=== PATIENT | male | born 1985 ===

== ENCOUNTER → 2018-09-02 | Outpatient (CLI) | payer BC ==
--- NOTE | 2018-09-02 17:44 | Diagnostic Imaging Report ---
INDICATION: Right testicular pain for the last month. FINDINGS: Right testicle measures 4.1 x 2.1 x 3.4 cm and the left testicle measures 3.7 x 2.4 x 4.0 cm. Both testes show homogeneous echotexture. No discrete testicular mass is seen. Both testes show blood flow. Right epididymis does contain an approximately 4 mm x 3 mm cyst. There is also a 3 mm x 4 mm cyst involving the left epididymis. Small bilateral hydroceles are present. IMPRESSION: 1. No evidence of testicular mass or vascular compromise. 2. Small bilateral epididymal cysts. 3. Small bilateral hydroceles. Dictated by: Dictated on workstation # [id number]
== END ==
LOC: RAD 16:39
PROVIDERS: ATTEND Pediatrics
DX: N50.3 Cyst of epididymis (principal); N43.3 Hydrocele, unspecified
CPT/HCPCS: 76870

== ENCOUNTER 2019-07-07 11:18 | Emergency (ER) | payer BC ==
[~2019-07-07] VITALS: Ht 185 cm; Wt 111.0 kg
--- OUTSIDE RECORDS SUMMARY | 2019-07-07 11:38 | XMS REPORT ---
Author Sarath Collins Organization [employer] Address Unknown Phone Unavailable Care Team Providers Care Certified Ophthalmic Surgical Assistant Name Role Phone RAPHAEL MAYS CP Unavailable Allergies No Known Allergies Problems Problem Type Condition Code Onset Dates Condition Statu s Problem Personal history of other allergy, other than to medicinal agents V15.09 Active Problem Acute sinusitis, unspecified 461.9 Active Problem Acute pharyngitis 462 Active Problem Acute bronchitis 466.0 Active Assessment Encounter for PPD test Z11.1 Activ e Medications No Known Medications Procedures Procedure Coding System Code Date TB INTRADERMAL TEST CPT-4 11726 Dec 18, 2014 Results Name Result Date Reference Range Unit Abnormali ty Flag TB INTRADERMAL Summary Purpose [employer] Submission
--- OUTSIDE RECORDS SUMMARY | 2019-07-07 11:38 | XMS REPORT ---
Author Author Sarath Christine Doctor Organization [facility] Address Unknown Phone Unavailable Care Team Providers Care Surveillance Agent Name Role Phone Migration, Doctor Unavailable Unavailable PROBLEMS Type Condition ICD9-CM Code YPG20-IS Code Onset Dates Condition S tatus SNOMED Code Problem Acute pharyngitis 462 Active 36 9987685 Problem Acute sinusitis, unspecified 461.9 A ctive 28335042 Problem Personal history of other allergy, other than to medicinal agents V15.09 Active 655832007 Problem Acute bronchitis 466.0 Active 105 88581 ALLERGIES No Information ENCOUNTERS Encounter Location Date Diagnosis [address] [id number] [id number] May, [facility] [address] [facility] [id number] [address] [place] [address] [phone] Dec, Dental examination Z01.20 [facility] [address] [id number] [place] [address] [id number] July, Contact dermatitis, unspecif ied contact dermatitis type, unspecified trigger L25.9 [facility] [address] [id number] [place] [address] [phone] July, Contact dermatitis, unspecif ied contact dermatitis type, unspecified trigger L25.9 [facility] [address] [facility] [id number] [address] [place] [phone] Dec, Encounter for PPD test Z11.1 [facility] [address] [facility] [id number] [address] [place] [address] [id number] Oct, Dental examination V72.2 [facility] [address] [facility] [id number] [address] [place] [address] [id number] Aug, Dental examination V72.2 [facility] [address] [facility] [id number] [address] [place] [address] [id number] July, Dental examination V72.2 [facility] [address] [id number] [address] [place] [phone] Jun, [facility] [address] [id number] [address] [place] [phone] Jun, [facility] [address] [id number] [address] [place] [phone] July, [facility] [address] [id number] [address] [place] [phone] July, [facility] [address] [id number] [address] [place] [phone] Jun, [facility] [address] [id number] [address] [place] [phone] Dec, [facility] [address] [id number] [address] [place] [phone] Dec, [facility] [address] [id number] [address] [place] [phone] Dec, [facility] [address] [id number] [address] [place] [phone] Dec, IMMUNIZATIONS No Known Immunizations SOCIAL HISTORY Never Assessed REASON FOR VISIT [facility] [place] C[place] VITAL SIGNS MEDICATIONS Unknown Medications RESULTS No Results PROCEDURES No Known procedures INSTRUCTIONS MEDICATIONS ADMINISTERED No Known Medications MEDICAL (GENERAL) HISTORY Type Description Date Medical History seasonal allergies
--- OUTSIDE RECORDS SUMMARY | 2019-07-07 11:38 | XMS REPORT ---
Author Author STEPHRADHASarath Organization [facility] Address Unknown Care Team Providers Care Sand Plant Attendant Name Role Phone PARVEEN ABBASI Unavailable PROBLEMS Type Condition ICD9-CM Code [id number] Code Onset Dates Condition S tatus SNOMED Code Problem Acute sinusitis, unspecified 461.9 A ctive 97956667 Problem Acute pharyngitis 462 Active 36 1512993 Problem Acute bronchitis 466.0 Active 105 32123 Problem Personal history of other allergy, other than to medicinal agents V15.09 Active 028685216 ALLERGIES Substance Reaction Event Type Date Status Bees Unknown Non Drug Allergy Dec, Active ENCOUNTERS Encounter Location Date Diagnosis [address] [id number] [id number] May, [facility] [address] [id number] [address] [place] [address] [phone] Dec, Dental examination Z01.20 [facility] [address] [facility] [id number] [place] [address] [phone] July, Contact dermatitis, unspecif ied contact dermatitis type, unspecified trigger L25.9 [facility] [address] [facility] [id number] [place] [address] [id number] July, Contact dermatitis, unspecif ied contact dermatitis type, unspecified trigger L25.9 [facility] [address] [facility] [id number] [address] [place] [phone] Dec, Encounter for PPD test Z11.1 [facility] [address] [id number] [address] [place] [address] [id number] Oct, Dental examination V72.2 [facility] [address] [id number] [address] [place] [address] [id number] Aug, Dental examination V72.2 [facility] [address] [id number] [address] [place] [address] [id number] Jul, 2014 Dental examination V72.2 [facility] [address] [id number] [address] [place] [phone] 14 Jun, 2014 [facility] [address] [id number] [address] [place] [phone] Jun, [facility] [address] [id number] [address] [place] [phone] July, [facility] [address] [id number] [address] [place] [phone] July, [facility] [address] [id number] [address] [place] [phone] Jun, [facility] [address] [id number] [address] [place] [phone] Dec, [facility] [address] [id number] [address] [place] [phone] Dec, [facility] [address] [id number] [address] [place] [phone] Dec, [facility] [address] [id number] [address] [place] [phone] Dec, IMMUNIZATIONS No Known Immunizations SOCIAL HISTORY Never Assessed REASON FOR VISIT [facility] PLAN OF CARE Activity Details Follow Up prn Reason:build-up tooth # 30 VITAL SIGNS Height 73 in 2017-01-03 Blood pressure systolic 133 mmHg 2017-01-03 Blood pressure diastolic 90 mmHg 2017-01-03 MEDICATIONS Medication Instructions Dosage Frequency Start Date End Date Duration S steve Binghamteporfirio Allergy Active Xyzal Active RESULTS No Results PROCEDURES Procedure Date Ordered Result Body Site LTD ORAL EVALUATION - PROBLEM FOCUS Jan 03, 2017 INTRAORL-PERIAPICAL 1 FILM 57704 Jan 03, 2017 BITEWING - SINGLE FILM Jan 03, 2017 INSTRUCTIONS MEDICATIONS ADMINISTERED No Known Medications MEDICAL (GENERAL) HISTORY Type Description Date Medical History seasonal allergies
--- OUTSIDE RECORDS SUMMARY | 2019-07-07 11:38 | XMS REPORT ---
Author Author Sarath Mchugh Organization [facility] Address [address] [place] [address] Care Team Providers Care Pharmacy Technician Inpatient Name Role Phone CYNDI Mchugh Unavailable PROBLEMS Type Condition ICD9-CM Code [id number] Code Onset Dates Condition S tatus SNOMED Code Problem Acute sinusitis, unspecified 461.9 A ctive 35118549 Problem Acute pharyngitis 462 Active 36 2449488 Problem Acute bronchitis 466.0 Active 105 09980 Problem Personal history of other allergy, other than to medicinal agents V15.09 Active 564738816 ALLERGIES No Information ENCOUNTERS Encounter Location Date Diagnosis [facility] [address] [facility] [id number] [phone] May, [facility] [address] [id number] [address] [place] [address] [phone] Dec, Dental examination Z01.20 [facility] [address] [id number] [place] [address] [phone] July, Contact dermatitis, unspecif ied contact dermatitis type, unspecified trigger L25.9 [facility] [address] [facility] [id number] [place] [address] [phone] July, Contact dermatitis, unspecif ied contact dermatitis type, unspecified trigger L25.9 [facility] [address] [facility] [id number] [address] [place] [phone] Dec, Encounter for PPD test Z11.1 [facility] [address] [id number] [address] [place] [address] [phone] Oct, Dental examination V72.2 [facility] [address] [id number] [address] [place] [address] [id number] Aug, Dental examination V72.2 [facility] [address] [id number] [address] [place] [address] [id number] Jul, 2014 Dental examination V72.2 [facility] [address] [id number] [address] [place] [phone] 14 Jun, 2014 [facility] [address] [id number] [address] [place] [phone] Jun, [facility] [address] [id number] [address] [place] [phone] July, [facility] [address] [id number] [address] [place] [phone] July, [facility] [address] [id number] [address] [place] [phone] Jun, [facility] [address] [id number] [address] [place] [phone] Dec, [facility] [address] [id number] [address] [place] [phone] Dec, [facility] [address] [id number] [address] [place] [phone] Dec, [facility] [address] [id number] [address] [place] [phone] Dec, IMMUNIZATIONS No Known Immunizations SOCIAL HISTORY Never Assessed REASON FOR VISIT Waiting for call back PLAN OF CARE VITAL SIGNS MEDICATIONS Unknown Medications RESULTS No Results PROCEDURES No Known procedures INSTRUCTIONS MEDICATIONS ADMINISTERED No Known Medications MEDICAL (GENERAL) HISTORY Type Description Date Medical History seasonal allergies
--- OUTSIDE RECORDS SUMMARY | 2019-07-07 11:38 | XMS REPORT ---
Author Author Sarath RANGEL [facility] [employer] Address Unknown Phone Unavailable Care Team Providers Care Chemical Test Engineer Name Role Phone CHERYL RANGEL CP Unavailable Allergies No Known Allergies Problems Problem Type Condition ICD-9 Code Onset Dates Condition Statu s Problem Personal history of other allergy, other than to medicinal agents V15.09 Active Problem Acute sinusitis, unspecified 461.9 Active Problem Acute pharyngitis 462 Active Problem Acute bronchitis 466.0 Active Assessment Dental examination V72.2 Active Medications No Known Medications Procedures Procedure Coding System Code Date Billing Notes on claim CPT-4 EC109 July 19 015 Results No Known Results Summary Purpose [employer] Submission
--- OUTSIDE RECORDS SUMMARY | 2019-07-07 11:38 | XMS REPORT ---
Author Author Migration, Sarath Doctor Organization [facility] Address Unknown Phone Unavailable Care Team Providers Care Reinforcing Bar Setter Name Role Phone Migration, Doctor Unavailable Unavailable PROBLEMS Type Condition ICD9-CM Code [id number] Code Onset Dates Condition S tatus SNOMED Code Problem Acute pharyngitis 462 Active 36 1471748 Problem Acute sinusitis, unspecified 461.9 A ctive 02811687 Problem Personal history of other allergy, other than to medicinal agents V15.09 Active 883580062 Problem Acute bronchitis 466.0 Active 105 34101 ALLERGIES Substance Reaction Event Type Date Status Bees Unknown Non Drug Allergy Jun, Active ENCOUNTERS Encounter Location Date Diagnosis [address] [id number] [place] [address] [phone] May, [facility] [address] [facility] [id number] [address] [place] [address] [id number] Dec, Dental examination Z01.20 [facility] [id number] [place] [address] [phone] July, Contact dermatitis, unspecif ied contact dermatitis type, unspecified trigger L25.9 [facility] [address] [id number] [place] [address] [phone] July, Contact dermatitis, unspecif ied contact dermatitis type, unspecified trigger L25.9 [facility] [address] [facility] [id number] [address] [place] [phone] Dec, Encounter for PPD test Z11.1 [facility] [address] [facility] [id number] [address] [place] [address] [phone] Oct, Dental examination V72.2 [facility] [address] [facility] [id number] [address] [place] [address] [phone] Aug, Dental examination V72.2 [facility] [address] [facility] [id number] [address] [place] [address] [id number] July, Dental examination V72.2 [facility] [address] [id number] [address] [place] [phone] Jun, [facility] [address] [id number] [address] [place] [phone] Jun, [facility] [address] [id number] [address] [place] [phone] July, [facility] [address] [id number] [address] [place] [phone] July, [facility] [address] [id number] [address] [place] [phone] Jun, [facility] [address] [id number] [address] [place] [phone] Dec, [facility] [address] [id number] [address] [place] [phone] Dec, [facility] [address] [id number] [address] [place] [phone] Dec, [facility] [address] [id number] [address] [place] [phone] Dec, IMMUNIZATIONS No Known Immunizations SOCIAL HISTORY Never Assessed REASON FOR VISIT [facility] PLAN OF CARE VITAL SIGNS MEDICATIONS Medication Instructions Dosage Frequency Start Date End Date Duration S tatus Flonase 50 mcg/actuation take 1 sprays b y Nasal route 2 times per day in each nostril Jun, Active Augmentin 875-125 mg 1 tablet by Oral route 2 times pe r day for 14 day(s) July, Active RESULTS No Results PROCEDURES No Known procedures INSTRUCTIONS MEDICATIONS ADMINISTERED No Known Medications MEDICAL (GENERAL) HISTORY Type Description Date Medical History seasonal allergies
--- NOTE | 2019-07-07 11:56 | ED Chest Pain ---
General Chief Complaint: Chest Pain Stated Complaint: CP Nursing Triage Note: Pt reports dull chest pain off and on since Saturday (07/02). Pt reports an episode around 0930 or 1000 this morning lasting approx 30 seconds of heart racing. Pt reports similar "anxiety attacks" in the past. Pt states he is not having chest pain at this time. Nursing Sepsis Screen: No Definite Risk History of Present Illness Date Seen by Provider: Jul 07, 2019 Time Seen by Provider: 11:25 Initial Comments 34-year-old male reports chest discomfort present since 07/03/19, intermittently lasting anywhere from 5-20 minutes. He noticed increased symptoms and anxiety over night making it difficult to sleep. He is having minimal discomfort at this time. He has no history of cardiac disease. He is denying any nausea, vomiting, or diaphoresis. No history of diabetes. Mother has history of hypertension. He has not seen his primary care provider or seek other health care since symptoms began. He has a history of GERD in the past, he did try Zantac last night with no resolution in his symptoms. He reports approximately 2-3 panic episodes in the last 2-5 years has never required medical intervention for panic attacks or anxiety. Timing/Duration: 4-5 days Severity/Quality: mild, dull Location: substernal Radiation: no radiation Prior CP/Workup: no prior chest pain, no prior cardiac workup ASA po MANAGER MOBILITY: No NTG SL MANAGER MOBILITY: No Associated Symptoms: denies symptoms Allergies and Home Medications Allergies Coded Allergies: No Known Drug Allergies (Unverified , 07/07/19) Patient Home Medication List Home Medication List Reviewed: Yes Review of Systems Review of Systems Constitutional: no symptoms reported, see HPI EENTM: No Symptoms Reported, See HPI Respiratory: No Symptoms Reported, See HPI; Denies Cough Cardiovascular: See HPI, Chest Pain Gastrointestinal: No Symptoms Reported, See HPI Genitourinary: No Symptoms Reported, See HPI Musculoskeletal: see HPI Psychiatric/Neurological: See HPI, Anxiety All Other Systems Reviewed Negative Unless Noted: Yes Past Biepagv-Ieopcm-Rkzcrd Hx Past Med/Social Hx: Reviewed Nursing Past Med/Soc Hx Patient Social History Alcohol Use: Denies Use Recreational Drug Use: No Smoking Status: Never a Smoker 2nd Hand Smoke Exposure: No Recent Foreign Travel: No Contact w/Someone Who Travel: No Recent Infectious Disease Expo: No Recent Hopitalizations: No Seasonal Allergies Seasonal Allergies: No Past Medical History Surgeries: No Respiratory: No Cardiac: No Neurological: No Genitourinary: No Gastrointestinal: No Musculoskeletal: No Endocrine: No HEENT: No Cancer: No Psychosocial: No Integumentary: No Blood Disorders: No Physical Exam Vital Signs Vital Signs - First Documented Capillary Refill : Less Than 3 Seconds Height, Weight, BMI Height: '" Weight: lbs. oz. kg; 32.00 BMI Method: General Appearance: No Apparent Distress, WD/WN HEENT: PERRL/EOMI, TMs Normal, Normal ENT Inspection, Pharynx Normal Neck: Full Range of Motion, Normal Inspection, Non Tender, Supple Respiratory: Chest Non Tender, Lungs Clear, Normal Breath Sounds Cardiovascular: Regular Rate, Rhythm, No Edema Gastrointestinal: Normal Bowel Sounds, No Organomegaly, No Pulsatile Mass, Non Tender, Soft Extremity: Normal Capillary Refill, Normal Inspection, Normal Range of Motion, Non Tender, No Calf Tenderness, No Pedal Edema Neurologic/Psychiatric: Alert, Oriented x3, No Motor/Sensory Deficits, Normal Mood/Affect Skin: Normal Color, Warm/Dry Progress/Results/Core Measures Results/Orders Lab Results Laboratory Tests Test 07/07/19 12:22 Range/Units White Blood Count 6.6 4.3-11.0 10^3/uL Red Blood Count 5.33 4.35-5.85 10^6/uL Hemoglobin 16.5 13.3-17.7 G/DL Hematocrit 46 40-54 % Mean Corpuscular Volume 87 80-99 FL Mean Corpuscular Hemoglobin 31 25-34 PG Mean Corpuscular Hemoglobin Concent 36 32-36 G/DL Red Cell Distribution Width 12.7 10.0-14.5 % Platelet Count 260 130-400 10^3/uL Mean Platelet Volume 9.7 7.4-10.4 FL Neutrophils (%) (Auto) 75 42-75 % Lymphocytes (%) (Auto) 15 12-44 % Monocytes (%) (Auto) 8 0-12 % Eosinophils (%) (Auto) 1 0-10 % Basophils (%) (Auto) 1 0-10 % Neutrophils # (Auto) 5.0 1.8-7.8 X 10^3 Lymphocytes # (Auto) 1.0 1.0-4.0 X 10^3 Monocytes # (Auto) 0.6 0.0-1.0 X 10^3 Eosinophils # (Auto) 0.1 0.0-0.3 10^3/uL Basophils # (Auto) 0.0 0.0-0.1 10^3/uL Prothrombin Time 13.2 12.2-14.7 SEC INR Comment 1.0 0.8-1.4 Activated Partial Thromboplast Time 29 24-35 SEC Sodium Level 138 135-145 MMOL/L Potassium Level 3.8 3.6-5.0 MMOL/L Chloride Level 103 98-107 MMOL/L Carbon Dioxide Level 25 21-32 MMOL/L Anion Gap 10 5-14 MMOL/L Blood Urea Nitrogen 8 7-18 MG/DL Creatinine 1.06 0.60-1.30 MG/DL Estimat Glomerular Filtration Rate > 60 BUN/Creatinine Ratio 8 Glucose Level 99 70-105 MG/DL Calcium Level 9.2 8.5-10.1 MG/DL Corrected Calcium 8.9 8.5-10.1 MG/DL Magnesium Level 2.1 1.6-2.4 MG/DL Total Bilirubin 0.5 0.1-1.0 MG/DL Aspartate Amino Transf (AST/SGOT) 26 5-34 U/L Alanine Aminotransferase (ALT/SGPT) 43 0-55 U/L Alkaline Phosphatase 92 40-136 U/L Myoglobin 78.5 10.0-92.0 NG/ML Troponin I < 0.028 <0.028 NG/ML Total Protein 7.8 6.4-8.2 GM/DL Albumin 4.4 3.2-4.5 GM/DL My Orders Orders - MIGUEL ÁNGEL REN [employer]PERATOR Cbc With Automated Diff (07/07/19 11:40) Magnesium (07/07/19 11:40) Chest 1 View, Ap/Pa Only (07/07/19 11:40) Ekg Tracing (07/07/19 11:40) Comprehensive Metabolic Panel (07/07/19 11:40) Myoglobin Serum (07/07/19 11:40) Protime With Inr (07/07/19 11:40) Partial Thromboplastin Time (07/07/19 11:40) O2 (07/07/19 11:40) Monitor-Rhythm Ecg Trace Only (07/07/19 11:40) Ed Iv/Invasive Line Start (07/07/19 11:40) Troponin I (07/07/19 11:40) Aspirin Chewable Tablet (Baby Aspirin Ch (07/07/19 12:00) Medications Given in ED Current Medications Medications Dose Ordered Sig/Sobia Route Start Time Stop Time Status Last Admin Dose Admin Aspirin 324 mg ONCE ONCE PO 07/07/19 12:00 07/07/19 12:01 DC 07/07/19 12:16 324 MG Vital Signs/I&O 07/07/19 07/07/19 11:20 11:20 Temp 36.8 Pulse 93 Resp 20 B/P (MAP) 150/100 (117) Pulse Ox 98 O2 Delivery Room Air Room Air Blood Pressure Mean: 117 Progress Progress Note : Time: 11:25 Progress Note Patient seen and evaluated, will obtain labs, EKG and chest x-ray. Aspirin 324 mg orally. 1215 no change in symptoms. Awaiting xray and lab results. 1315 Patient has remained pain free, lab results discussed with the patient. Agreeable to follow up with PCP. Return precautions reviewed. Initial ECG Impression Date: Jul 07, 2019 Initial ECG Impression Time: 11:25 Initial ECG Rate: 89 Initial ECG Rhythm: Normal Sinus Initial ECG Intervals: Normal Initial ECG Intervals ID 167, QRSD 98, QT 360, QTC 439. Mclain P 39, QRS 24, T9 Initial ECG Impression: Normal Initial ECG Comparisson: No Previous ECG Available Diagnostic Imaging Diagonstic Imaging: Xray Plain Films/CT/US/NM/MRI: chest Comments NAME: LINDA BRONW [facility] REC#: [id number] PT STATUS: REG ER : 1985 PHYSICIAN: MIGUEL ÁNGEL REN ADMIT DATE: 07/07/19/ER Draft Date of Exam:07/07/19 CHEST 1 VIEW, AP/PA ONLY INDICATION: Chest pain. TECHNIQUE: Single view chest 12:43 PM. CORRELATION STUDY: None FINDINGS: The heart size, mediastinal configuration and pulmonary vascularity are within normal limits. There is question minimal asymmetric infiltrate in the right perihilar region. The remaining lung lomax otherwise clear. IMPRESSION: 1. Question early infiltrate right perihilar region. Dictated on workstation # [id number] Dict: 07/07/19 1254 Trans: 07/07/19 1254 DO [id number] Interpreted by: DIANA BERNARD DO Electronically signed by: Departure Impression Primary Impression: Chest pain Qualified Codes: R07.9 - Chest pain, unspecified Additional Impressions: Gastroesophageal reflux disease Qualified Codes: K21.9 - Gastro-esophageal reflux disease without esophagitis Hypertension Qualified Codes: I10 - Essential (primary) hypertension Disposition: HOME, SELF-CARE Condition: Improved Departure-Patient Inst. Decision time for Depature: 13:15 Referrals: NO,LOCAL PHYSICIAN (PCP/Family) Primary Care Physician Patient Instructions: Anxiety, Adult (DC), Chest Pain That Is Not Caused by the Heart (DC), High Blood Pressure (DC) Add. Discharge Instructions: Follow-up with Dr. Fine for anxiety and hypertension. Take aspirin 81 mg, one tablet daily. Take Pepcid 10 mg twice daily. Return to the emergency department for new, urgent health care needs. All discharge instructions reviewed with patient and/or family. Voiced understanding. MIGUEL ÁNGEL REN Jul 07, 2019 11:56
[2019-07-07] MEDS ORDERED: ASPIRIN 81 MG CHEW (CHILDREN'S ASA) PO ONE (12:00)
[2019-07-07 12:27] LABS: BASOPHILS % (AUTO) 1 % (0-10); EOSINOPHILS # (AUTO) 0.1 10^3/uL (0.0-0.3); EOSINOPHILS % (AUTO) 1 % (0-10); HEMATOCRIT 46 % (40-54); HEMOGLOBIN 16.5 G/DL (13.3-17.7); LYMPHOCYTES % (AUTO) 15 % (12-44); MEAN CORPUSCULAR HEMOGLOBIN 31 PG (25-34); MEAN CORPUSCULAR HGB CONC 36 G/DL (32-36); MEAN CORPUSCULAR VOLUME 87 FL (80-99); MEAN PLATELET VOLUME 9.7 FL (7.4-10.4); MONOCYTES # (AUTO) 0.6 X 10^3 (0.0-1.0); MONOCYTES % (AUTO) 8 % (0-12); NEUTROPHILS % (AUTO) 75 % (42-75); PLATELET COUNT 260 10^3/uL (130-400); RED CELL DISTRIBUTION WIDTH 12.7 % (10.0-14.5); WHITE BLOOD COUNT 6.6 10^3/uL (4.3-11.0)
[2019-07-07 12:42] LABS: PROTHROMBIN TIME PATIENT 13.2 SEC (12.2-14.7)
[2019-07-07 12:52] LABS: ALANINE AMINOTRANSFERASE 43 U/L (0-55); ALBUMIN 4.4 GM/DL (3.2-4.5); ALKALINE PHOSPHATASE 92 U/L (40-136); BILIRUBIN,TOTAL 0.5 MG/DL (0.1-1.0); BUN/CREATININE RATIO 8; CALCIUM 9.2 MG/DL (8.5-10.1); CARBON DIOXIDE 25 MMOL/L (21-32); CHLORIDE 103 MMOL/L (98-107); CREATININE SERUM 1.06 MG/DL (0.60-1.30); GFR ESTIMATED > 60; GLUCOSE 99 MG/DL (70-105); MAGNESIUM 2.1 MG/DL (1.6-2.4); POTASSIUM 3.8 MMOL/L (3.6-5.0); SODIUM 138 MMOL/L (135-145); TOTAL PROTEIN 7.8 GM/DL (6.4-8.2)
--- NOTE | 2019-07-07 12:55 | Diagnostic Imaging Report ---
INDICATION: Chest pain. TECHNIQUE: Single view chest 12:43 PM. CORRELATION STUDY: None FINDINGS: The heart size, mediastinal configuration and pulmonary vascularity are within normal limits. There is question minimal asymmetric infiltrate in the right perihilar region. The remaining lung lomax otherwise clear. IMPRESSION: 1. Question early infiltrate right perihilar region. Dictated by: Dictated on workstation # [id number]
[2019-07-07 13:44] VITALS: BP 149/98
== END 2019-07-07 13:39 | disposition home or self-care (01) ==
LOC: EDUNIT# 11:18 → ER 11:19
DX: R07.9 Chest pain, unspecified (principal); K21.9 Gastro-esophageal reflux disease without esophagitis; I10 Essential (primary) hypertension; F41.9 Anxiety disorder, unspecified
CPT/HCPCS: 36415; 71045; 80053; 83735; 83874; 84484; 85025; 85610; 85730; 93005; 93041

== ENCOUNTER 2021-02-20 15:02 | Observation (INO) | payer BC ==
[~2021-02-20] VITALS: Ht 185 cm; Wt 113.0 kg
--- NOTE | 2021-02-20 15:17 | ED Neurological Problem ---
General Stated Complaint: R SIDED NUMBNESS/WEAKNESS Source: patient Exam Limitations: no limitations History of Present Illness Date Seen by Provider: Feb 20, 2021 Time Seen by Provider: 15:13 Initial Comments To ER by private vehicle from Dr. Rober Daly's office where he presented to be seen for a cough that is productive of 3 weeks duration. He is absent any body aches fevers chills nausea or headache. He is unvaccinated against Covid. Has not yet been tested for Covid. While at the office appointment at about 220 to 2:30 PM today he had the onset of paresthesias and tingling of the right arm and right leg. Following the onset of paresthesias he lost strength in the right arm and right leg. No history of this he does not smoke. He does have a history of panic attacks and Dr. Daly thought he might be having a panic attack and gave half of the Valium. He was referred to the emergency room for further work-up. His only medication is a daily antihistamine Timing/Duration: 1 week Severity: moderate Allergies and Home Medications Allergies Coded Allergies: No Known Drug Allergies (Unverified , 07/07/19) Patient Home Medication List Home Medication List Reviewed: Yes Review of Systems Review of Systems Constitutional: see HPI Eyes: No Symptoms Reported Ears, Nose, Mouth, Throat: no symptoms reported Respiratory: no symptoms reported Cardiovascular: no symptoms reported Genitourinary: no symptoms reported Musculoskeletal: no symptoms reported Skin: no symptoms reported Psychiatric/Neurological: See HPI Endocrine: No Symptoms Reported Past Gudkvxj-Yxzlsr-Etwhml Hx Seasonal Allergies Seasonal Allergies: No Past Medical History Surgeries: No Respiratory: No Cardiac: No Neurological: No Genitourinary: No Gastrointestinal: No Musculoskeletal: No Endocrine: No HEENT: No Cancer: No Psychosocial: No Integumentary: No Blood Disorders: No Physical Exam Vital Signs Vital Signs - First Documented 02/20/21 15:05 Temp 36.0 Pulse 68 Resp 18 B/P (MAP) 133/94 (107) Pulse Ox 96 Capillary Refill : Height, Weight, BMI Height: '" Weight: lbs. oz. kg; 32.00 BMI Method: General Appearance: WD/WN, no apparent distress, other (Alert and oriented very pleasant demeanor. He does not appear overly anxious. He converses appropriately with clear speech. There is no facial asymmetry. He is hypertensive at 170s over 90s with a normal telemetry strip showing sinus rhythm at 75. He is afebrile. He is very diaphoretic.) Neck: non-tender, full range of motion Respiratory: no respiratory distress, no accessory muscle use Cardiovascular: regular rate, rhythm, no murmur Gastrointestinal: normal bowel sounds, non tender, soft Neurologic/Psychiatric: alert, normal mood/affect, oriented x 3 Crainal Nerves: normal hearing, normal speech, PERRL Coordination/Gait: normal finger to nose Skin: normal color, warm/dry Stroke Onset of Symptoms Date of Onset of Symptoms: Feb 20, 2021 Time of Symptom Onset: 14:20 Onset of Symptoms: Yes Symptoms onset unknown: No NIH Stroke Scale Assessment Select: Initial Level of Consciousness: 0=Alert (0), Level of Consciousness- Questions: 0=Answers both month/age (0), LOC Commands: 0=Performs both tasks (0), Gaze: Normal (0), Visual Steve: 0=No visual loss (0), Facial Movement (Facial Paresis): 0=Normal symmetrical mnt (0), Motor Function-Arms Right: 1=Drift (1), Motor Function-Arms Left: 0=No drift (0), Motor Function-Legs Right: 1=Drift (1), Motor Function-Legs Left: 0=No drift (0), Limb Ataxia: 0=Absent (0), Sensory: 1=Mild to Moderate loss (1), Best Language: 0=No aphasia (0), Dysarthria: 0=Normal (0), Extinction & Inattention: 0=No abnormality (0), Total: 3 Stroke Thrombolytic Exclusion Age 18 or Over: Yes Acute intenal hemorrhage: No History of CVA: No Uncontrolled Coagulation Defec: No Intracranial Hemorrhage: No Severe Hypertension: No GI or Bleed: No Subarachnoid Hemorrhage: No Intracranial Neoplasm/Aneurysm: No Oral Anticoagulants: No Surgery or Trauma: No Puncture of Non-Compressible V: No Recent CPR: No Diabetic Hemorrhagic Retinopat: No Organ Biopsy: No Recent Obstetric Delivery: No Glucose: No Significant Hepatic Dysfunctio: No NIH Stoke Scale >22: No Bacterial Endocarditis: No Pericarditis: No Improving Symptoms: No Platelets: No TPA Contraindication: No IV - TPa Received IV - TPa Procedure Performed?: No Progress/Results/Core Measures Results/Orders Lab Results Laboratory Tests Test 02/20/21 15:10 02/20/21 15:15 Range/Units White Blood Count 12.0 H 4.3-11.0 10^3/uL Red Blood Count 5.45 4.30-5.52 10^6/uL Hemoglobin 17.1 13.3-17.7 g/dL Hematocrit 48 40-54 % Mean Corpuscular Volume 88 80-99 fL Mean Corpuscular Hemoglobin 31 25-34 pg Mean Corpuscular Hemoglobin Concent 36 32-36 g/dL Red Cell Distribution Width 12.4 10.0-14.5 % Platelet Count 362 130-400 10^3/uL Mean Platelet Volume 9.2 9.0-12.2 fL Immature Granulocyte % (Auto) 0 % Neutrophils (%) (Auto) 46 42-75 % Lymphocytes (%) (Auto) 41 12-44 % Monocytes (%) (Auto) 7 0-12 % Eosinophils (%) (Auto) 4 0-10 % Basophils (%) (Auto) 1 0-10 % Neutrophils # (Auto) 5.5 1.8-7.8 X 10^3 Lymphocytes # (Auto) 4.9 H 1.0-4.0 X 10^3 Monocytes # (Auto) 0.8 0.0-1.0 X 10^3 Eosinophils # (Auto) 0.5 H 0.0-0.3 10^3/uL Basophils # (Auto) 0.1 0.0-0.1 10^3/uL Immature Granulocyte # (Auto) 0.0 0.0-0.1 10^3/uL Prothrombin Time 12.6 12.2-14.7 SEC INR Comment 0.9 0.8-1.4 Activated Partial Thromboplast Time 27 24-35 SEC D-Dimer < 0.28 0.00-0.49 UG/ML Sodium Level 139 135-145 MMOL/L Potassium Level 3.2 L 3.6-5.0 MMOL/L Chloride Level 104 98-107 MMOL/L Carbon Dioxide Level 22 21-32 MMOL/L Anion Gap 13 5-14 MMOL/L Blood Urea Nitrogen 7 7-18 MG/DL Creatinine 1.04 0.60-1.30 MG/DL Estimat Glomerular Filtration Rate 81 BUN/Creatinine Ratio 7 Glucose Level 134 H 70-105 MG/DL Calcium Level 8.9 8.5-10.1 MG/DL Corrected Calcium 8.5 8.5-10.1 MG/DL Total Bilirubin 0.7 0.1-1.0 MG/DL Aspartate Amino Transf (AST/SGOT) 21 5-34 U/L Alanine Aminotransferase (ALT/SGPT) 35 0-55 U/L Alkaline Phosphatase 91 40-136 U/L Troponin I < 0.028 <0.028 NG/ML Total Protein 8.1 6.4-8.2 GM/DL Albumin 4.5 3.2-4.5 GM/DL SARS-CoV-2 RNA (RT-PCR) Not Detected Not Detecte My Orders Orders - JOEY ANDREWS APRN Cbc With Automated Diff (02/20/21 15:11) Protime With Inr (02/20/21 15:11) Partial Thromboplastin Time (02/20/21 15:11) Comprehensive Metabolic Panel (02/20/21 15:11) Fibrin Degradation Products (02/20/21 15:) Troponin I Jeniffer (02/20/21 15:11) Ua Culture If Indicated (02/20/21 15:11) Chest 1 View, Ap/Pa Only (02/20/21 15:11) Ekg Tracing (02/20/21 15:11) Accucheck Stat ONCE (02/20/21 15:11) Ed Iv/Invasive Line Start (02/20/21 15:11) Ed Iv/Invasive Line Start (02/20/21 15:11) Vital Signs Stroke Patient Q15M (02/20/21 15:11) Ct Head Wo-R/O Stroke (02/20/21 15:11) O2 (02/20/21 15:11) Intake & Output 06,14,22 (02/20/21 15:11) Monitor-Rhythm Ecg Trace Only (02/20/21 15:11) Dysphagia Screening Tool (02/20/21 15:11) Post Thrombolytic Adminstratio (02/20/21 15:11) Lipid Panel (02/21/21 06:00) Ct Angio Head/Neck (02/20/21 15:11) Covid 19 Inhouse Test (02/20/21 15:11) Iohexol Injection (Omnipaque 350 Mg/Ml 1 (02/20/21 15:30) Received Contrast (Hold Metformin- Contr (02/20/21 15:30) Ns (Ivpb) (Sodium Chloride 0.9% Ivpb Bag (02/20/21 15:30) Sodium Chloride Flush (Catheter Flush Sy (02/20/21 15:30) Lactated Ringers (Lr 1000 Ml Iv Solution (02/20/21 16:00) Aspirin Enteric Coated Tablet (Ecotrin T (02/20/21 16:45) Medications Given in ED Current Medications Medications Dose Ordered Sig/Sobia Route Start Time Stop Time Status Last Admin Dose Admin Iohexol 75 ml ONCE ONCE IV 02/20/21 15:30 02/20/21 15:38 DC 02/20/21 15:45 75 ML Sodium Chloride 100 ml ONCE ONCE IV 02/20/21 15:30 02/20/21 15:38 DC 02/20/21 15:46 80 ML Vital Signs/I&O 02/20/21 15:05 Temp 36.0 Pulse 68 Resp 18 B/P (MAP) 133/94 (107) Pulse Ox 96 Departure Communication (Admissions) NAME: LINDA BROWN [facility] REC#: [id number] PT STATUS: REG ER : 1985 PHYSICIAN: JOEY ANDREWS APRN ADMIT DATE: 02/20/21/ER Draft Date of Exam:02/20/21 CT ANGIO HEAD/NECK PROCEDURE: CT angiography of the head and CT angiography of the neck with and without contrast. TECHNIQUE: Contiguous noncontrast images were obtained from the skull base through the vertex. After intravenous contrast administration, helical CT angiography of the neck was performed. Source data was reformatted into 3D MIP projections. Delayed postcontrast acquisition was also obtained. Auto Exposure Controls were utilized during the CT exam to meet ALARA standards for radiation dose reduction. INDICATION: 35-year-old male presents with stroke-like symptoms, left-sided weakness, and right-sided numbness. COMPARISONS: CT head 02/20/2021. FINDINGS: There is normal arch origin of the great vessels. Both common carotid arteries are widely patent. Carotid bifurcations, cervical, high cervical, petrous, and cavernous segments of both ICA are normal. A1 and A2 segments of both MIRACLE, M1, M2, and M3 trifurcation vessels of both MCA are unremarkable. There is no large vessel or medium vessel occlusion seen in the anterior circulation. The left vertebral artery is dominant. Both vertebral arteries are patent to the skull base. There is PICA termination of the right vertebral artery. The V3 segment of the right vertebral artery, however, is atretic with poor contrast opacification. This may be due to technique; however, a short segment of atherosclerosis versus dissection in a very small [place] caliber vessel is not entirely excluded. It should be noted, however, that the right PICA does show contrast opacification. The dominant left vertebral artery is widely patent to the skull base. The V3 and V4 segments are widely patent. The left PICA, basilar artery, AICA, SCA, and water resource engineering specialist otherwise show normal contrast opacification. Lung apices are clear. Superior mediastinum is unremarkable. Parapharyngeal and paraspinous soft tissues are also grossly normal. Bone windows show normal alignment of the cervical vertebral bodies. IMPRESSION: 1. The nondominant right vertebral artery shows contrast opacification up to the skull base transverse segment. The V3 segment, however, shows poor contrast opacification. This may be due to technique; however, underlying short segment atherosclerosis versus focal dissection in this small-caliber vessel is not excluded. It should, however, be noted that the right PICA appears to show contrast opacification which may be due to collateral flow. 2. In the anterior circulation, no large vessel or medium vessel occlusion seen. 3. The left dominant vertebral artery is widely patent to the skull base, and the posterior secretion is otherwise widely patent with no large vessel or medium vessel occlusion seen. Additional nonemergent findings as described above. Dictated on workstation # [id number] Dict: 02/20/21 1555 Trans: 02/20/21 1610 [id number] Interpreted by: PAMELA MORELOS MD Electronically signed by: Family Conversation NAME: LINDA BROWN Jazzy [facility] REC#: [id number] PT STATUS: REG ER : 1985 PHYSICIAN: JOEY ANDREWS APRN ADMIT DATE: 02/20/21/ER Draft Date of Exam:02/20/21 CT HEAD WO-R/O STROKE PROCEDURE: CT head wo r/o stroke. TECHNIQUE: Multiple contiguous axial images were obtained through the brain without the use of intravenous contrast. Auto Exposure Controls were utilized during the CT exam to meet ALARA standards for radiation dose reduction. INDICATION: 35-year-old male with stroke-like symptoms with left-sided weakness and right-sided numbness. COMPARISONS: None FINDINGS: The midline structures are not displaced. The lateral, 3rd and 4th ventricles are normal in size, shape and anatomic position. There is no mass, mass effect, hydrocephalus or hemorrhage. Slight increased attenuation of the vascular structures is felt to be due to hemoconcentration rather than thromboemboli. There are no abnormal extra-axial fluid collections or hemorrhage. Basilar cisterns appear normal. Sinuses show acute on chronic pansinusitis most severe in the ethmoid air cells and sphenoid sinuses. Orbits and mastoid air cells are grossly normal. Bone windows showed no calvarial changes. IMPRESSION: 1. Essentially unremarkable nonenhanced CT brain. 2. Acute on chronic pansinusitis most severe in the posterior ethmoid air cells and sphenoid sinuses. 3. Additional nonemergent findings, as described above. Dictated on workstation # [id number] Dict: 02/20/21 1553 Trans: 02/20/21 1559 [facility] [id number] Interpreted by: PAMELA MORELOS MD Electronically signed by: EKG shows sinus rhythm rate of 66 normal intervals no ectopy no ST segment change 1630-I spoke with Dr. Wells from the stroke neurology service at the [facility] about the findings. CT angio shows poor opacification in the V3 segment of one of the vertebral arteries. This could result from a atherosclerosis, result of contrast timing, result of focal dissection. However these would not contribute to his anterior circulation symptoms. Dr. Wells would recommend admission for observation and typical stroke work-up including MRI. Symptoms have been waxing and waning during his ER stay. He associates t he resolution of symptoms and the recurrence of symptoms with coughing. He states that when he coughs as he did when he got back from CT he had a resolution of the tingling in the right arm and right leg. He has been having some neck pain and seeing a chiropractor for that. He has never had an MRI of the cervical spine. In addition to the brain MRI it would be beneficial to get a cervical spine MRI as well. 1645-with Dr. Yi, will admit and observe. Order for MRI brain with and without tomorrow and MRI C-spine tomorrow Impression Primary Impression: Paresthesia of right arm and leg Additional Impression: Cough Disposition: ADMITTED INPATIENT Condition: Stable Admissions Decision to Admit Reason: Admit from ER (General) Decision to Admit/Date: Feb 20, 2021 Time/Decision to Admit Time: 16:46 Departure-Patient Inst. Referrals: ROBER DALY MD (PCP/Family) Primary Care Physician Copy Copies To 1: ROBER DALY MD, PETER J APRN Feb 20, 2021 15:17
[2021-02-20 15:24] LABS: BASOPHILS # (AUTO) 0.1 10^3/uL (0.0-0.1); BASOPHILS % (AUTO) 1 % (0-10); EOSINOPHILS # (AUTO) 0.5 10^3/uL (0.0-0.3); EOSINOPHILS % (AUTO) 4 % (0-10); HEMATOCRIT 48 % (40-54); HEMOGLOBIN 17.1 g/dL (13.3-17.7); LYMPHOCYTES # (AUTO) 4.9 X 10^3 (1.0-4.0); LYMPHOCYTES % (AUTO) 41 % (12-44); MEAN CORPUSCULAR HEMOGLOBIN 31 pg (25-34); MEAN CORPUSCULAR HGB CONC 36 g/dL (32-36); MEAN CORPUSCULAR VOLUME 88 fL (80-99); MEAN PLATELET VOLUME 9.2 fL (9.0-12.2); MONOCYTES # (AUTO) 0.8 X 10^3 (0.0-1.0); MONOCYTES % (AUTO) 7 % (0-12); NEUTROPHILS # (AUTO) 5.5 X 10^3 (1.8-7.8); NEUTROPHILS % (AUTO) 46 % (42-75); PLATELET COUNT 362 10^3/uL (130-400)
[2021-02-20] MEDS ORDERED: HOLD METFORMIN - RECEIVED CONTRAST 20 ML VIAL IV SCH (15:30)
[2021-02-20] MEDS ORDERED: IOHEXOL 350 MG/ML 100 ML (OMNIPAQUE 350) VIAL IV ONE (15:30)
[2021-02-20] MEDS ORDERED: CATHETER FLUSH 10 ML SYR IV PRN (15:30)
[2021-02-20] MEDS ORDERED: NS 100 ML (IVPB) BAG IV ONE (15:30)
[2021-02-20 15:34] LABS: ALBUMIN 4.5 GM/DL (3.2-4.5); CHLORIDE 104 MMOL/L (98-107); POTASSIUM 3.2 MMOL/L (3.6-5.0); SODIUM 139 MMOL/L (135-145)
[2021-02-20 15:36] LABS: CALCIUM 8.9 MG/DL (8.5-10.1)
[2021-02-20 15:37] LABS: GLUCOSE 134 MG/DL (70-105); TOTAL PROTEIN 8.1 GM/DL (6.4-8.2)
[2021-02-20 15:38] LABS: CARBON DIOXIDE 22 MMOL/L (21-32)
[2021-02-20 15:39] LABS: BILIRUBIN,TOTAL 0.7 MG/DL (0.1-1.0)
[2021-02-20 15:40] LABS: ALKALINE PHOSPHATASE 91 U/L (40-136); CREATININE SERUM 1.04 MG/DL (0.60-1.30); GFR ESTIMATED 81
[2021-02-20 15:42] LABS: BUN/CREATININE RATIO 7
[2021-02-20 15:43] LABS: ALANINE AMINOTRANSFERASE 35 U/L (0-55)
--- NOTE | 2021-02-20 15:55 | Diagnostic Imaging Report ---
Indication: Altered mental status Portable chest 3:45 PM Heart size and pulmonary vascularity are normal. Lungs are clear. There are no effusions or pneumothoraces. IMPRESSION: Negative chest Dictated by: Dictated on workstation # [id number]
--- NOTE | 2021-02-20 15:59 | Diagnostic Imaging Report ---
PROCEDURE: CT head wo r/o stroke. TECHNIQUE: Multiple contiguous axial images were obtained through the brain without the use of intravenous contrast. Auto Exposure Controls were utilized during the CT exam to meet ALARA standards for radiation dose reduction. INDICATION: 35-year-old male with stroke-like symptoms with left-sided weakness and right-sided numbness. COMPARISONS: None FINDINGS: The midline structures are not displaced. The lateral, 3rd and 4th ventricles are normal in size, shape and anatomic position. There is no mass, mass effect, hydrocephalus or hemorrhage. Slight increased attenuation of the vascular structures is felt to be due to hemoconcentration rather than thromboemboli. There are no abnormal extra-axial fluid collections or hemorrhage. Basilar cisterns appear normal. Sinuses show acute on chronic pansinusitis most severe in the ethmoid air cells and sphenoid sinuses. Orbits and mastoid air cells are grossly normal. Bone windows showed no calvarial changes. IMPRESSION: 1. Essentially unremarkable nonenhanced CT brain. 2. Acute on chronic pansinusitis most severe in the posterior ethmoid air cells and sphenoid sinuses. 3. Additional nonemergent findings, as described above. Dictated by: Dictated on workstation # [id number]
[2021-02-20] MEDS ORDERED: LACTATED RINGERS 1,000 ML IV SCH (16:00)
--- NOTE | 2021-02-20 16:10 | Diagnostic Imaging Report ---
PROCEDURE: CT angiography of the head and CT angiography of the neck with and without contrast. TECHNIQUE: Contiguous noncontrast images were obtained from the skull base through the vertex. After intravenous contrast administration, helical CT angiography of the neck was performed. Source data was reformatted into 3D MIP projections. Delayed postcontrast acquisition was also obtained. Auto Exposure Controls were utilized during the CT exam to meet ALARA standards for radiation dose reduction. INDICATION: 35-year-old male presents with stroke-like symptoms, left-sided weakness, and right-sided numbness. COMPARISONS: CT head 02/20/2021. FINDINGS: There is normal arch origin of the great vessels. Both common carotid arteries are widely patent. Carotid bifurcations, cervical, high cervical, petrous, and cavernous segments of both ICA are normal. A1 and A2 segments of both MIRACLE, M1, M2, and M3 trifurcation vessels of both MCA are unremarkable. There is no large vessel or medium vessel occlusion seen in the anterior circulation. The left vertebral artery is dominant. Both vertebral arteries are patent to the skull base. There is PICA termination of the right vertebral artery. The V3 segment of the right vertebral artery, however, is atretic with poor contrast opacification. This may be due to technique; however, a short segment of atherosclerosis versus dissection in a very small iroquois caliber vessel is not entirely excluded. It should be noted, however, that the right PICA does show contrast opacification. The dominant left vertebral artery is widely patent to the skull base. The V3 and V4 segments are widely patent. The left PICA, basilar artery, AICA, SCA, and boiler operator helper otherwise show normal contrast opacification. Lung apices are clear. Superior mediastinum is unremarkable. Parapharyngeal and paraspinous soft tissues are also grossly normal. Bone windows show normal alignment of the cervical vertebral bodies. IMPRESSION: 1. The nondominant right vertebral artery shows contrast opacification up to the skull base transverse segment. The V3 segment, however, shows poor contrast opacification. This may be due to technique; however, underlying short segment atherosclerosis versus focal dissection in this small-caliber vessel is not excluded. It should, however, be noted that the right PICA appears to show contrast opacification which may be due to collateral flow. 2. In the anterior circulation, no large vessel or medium vessel occlusion seen. 3. The left dominant vertebral artery is widely patent to the skull base, and the posterior secretion is otherwise widely patent with no large vessel or medium vessel occlusion seen. Additional nonemergent findings as described above. Dictated by: Dictated on workstation # [id number]
[2021-02-20 16:36] LABS: INR 0.9 (0.8-1.4); PARTIAL THROMBOPLASTIN TIME 27 SEC (24-35); PROTHROMBIN TIME PATIENT 12.6 SEC (12.2-14.7)
[2021-02-20 16:38] LABS: FIBRIN DEGRADATION PRODUCTS < 0.28 UG/ML (0.00-0.49)
[2021-02-20] MEDS ORDERED: ASPIRIN E.C. 81 MG (ECOTRIN) TAB PO ONE (16:45)
[2021-02-20] MEDS ORDERED: ASPIRIN 81 MG CHEW (CHILDREN'S ASA) ONE (16:55)
[2021-02-20 17:40] VITALS: BP 162/106
[2021-02-20] MEDS ORDERED: guaiFENesin/CODEINE (ROBITUSSIN AC) 10ML UDC PO PRN ×2 (18:00→20:45)
[2021-02-20] MEDS ORDERED: ALPRAZolam 0.25 MG (XANAX) TAB PO PRN (18:00)
[2021-02-20] MEDS ORDERED: ONDANSETRON 4 MG/2 ML (SDV) Z0FRAN IVP PRN (18:00)
[2021-02-20] MEDS ORDERED: diphenhydrAMINE 25 MG TAB (BENADRYL) PO PRN (18:00)
[2021-02-20] MEDS ORDERED: ENOXAPARIN 40 MG/0.4 ML (LOVENOX) SYR SC SCH (18:00)
[2021-02-20] MEDS ORDERED: SENNA W/DOCUSATE (SENOKOT S) TABLET PO PRN (18:00)
[2021-02-20] MEDS ORDERED: ACETAMINOPHEN 325 MG TABLET PO PRN (18:00)
[2021-02-20] MEDS ORDERED: HYDROcodone/APAP 5 MG/325 MG (LORTAB) TAB PO PRN (18:00)
[2021-02-20] MEDS ORDERED: MELATONIN 3 MG TABLET PO PRN (18:00)
[2021-02-20] MEDS ORDERED: NS IV 1000 ML 1,000 ML IV SCH (18:00)
[2021-02-20] MEDS ORDERED: CALCIUM CARBONATE 500 MG (TUMS) TAB.CHEW PO PRN (18:00)
[2021-02-20] MEDS ORDERED: LOPERAMIDE 2 MG (IMODIUM) TABLET PO PRN (18:00)
[2021-02-20] MEDS ORDERED: DOCUSATE SODIUM 100 MG (COLACE) CAP PO PRN (18:00)
[2021-02-20 18:31] VITALS: BP 133/94
[2021-02-20] MEDS ORDERED: RT-ALBUTEROL SULF 2.5 MG/3 ML PRE-MIX VIAL INH PRN (18:45)
[2021-02-20 20:00] VITALS: BP 154/94
[2021-02-20] MEDS: polyethylene glycoL POWDER 17 GM (MIRALAX) PACK PO SCH (20:31)
--- NOTE | 2021-02-20 20:43 | History & Physical-Hospitalist ---
History of Present Illness HPI/Chief Complaint Chief complaint: Right-sided paresthesia History of present illness: This is a 35-year-old white male who was seen in Dr. Rober Núñez's office today due to cough and upper respiratory illness. He reports that he has been coughing for 3 weeks and multiple Covid test were negative. He reports that after a cough he felt something in his neck and began experiencing right-sided weakness with NIH score of 3. Neurology stroke service notified at and they recommended full stroke protocol and observation. He has been seeing a chiropractor Dr. Robert Aguilar. He reports continued neck pain. Lungs are wheezing on exam so well initiate aggressive treatment for that issue along with stroke work-up along with cervical spine impingement. Source: patient, RN/MD Exam Limitations: no limitations Date Seen 02/20/21 Time Seen by a Provider: 19:00 Attending Physician Ximena Yi Chad C MD Referring Physician Date of Admission Feb 20, 2021 at 16:51 Home Medications & Allergies Home Medications Reviewed patient Home Medication Reconciliation performed by pharmacy medication reconciliations small engine technician and/or nursing. Patients Allergies have been reviewed. Allergies Allergies Coded Allergies No Known Drug Allergies (Unverified07/07/19) Past Mioyvcl-Uilqah-Wezvsp Hx Patient Social History Marrital Status: single Employed/Student: employed Tobacco Use?: No Smoking Status: Never a Smoker Substance use?: No Alcohol Use?: No Pt feels they are or have been: No Seasonal Allergies Seasonal Allergies: No Current Status Advance Directives: No Communicates: Verbally Primary Language: [place] Preferred Spoken Language: [place] Is interpretation needed?: No Past Medical History Blood Disorders: No Review of Systems Constitutional: see HPI EENTM: no symptoms reported Respiratory: cough, wheezing Cardiovascular: no symptoms reported Gastrointestinal: no symptoms reported Genitourinary: no symptoms reported Musculoskeletal: muscle twitching, muscle weakness, neck pain Skin: no symptoms reported Psychiatric/Neurological: Anxiety, Weakness All Other Systems Reviewed Negative Unless Noted: Yes Physical Exam Physical Exam Vital Signs Vital Signs - First Documented 02/20/21 02/20/21 02/20/21 15:05 17:40 18:31 Temp 36.0 Pulse 68 Resp 18 B/P (MAP) 133/94 (107) Pulse Ox 96 O2 Delivery Room Air FiO2 21 Capillary Refill : Less Than 3 Seconds Height, Weight, BMI Height: '" Weight: lbs. oz. kg; 33.01 BMI Method: General Appearance: No Apparent Distress, WD/WN Eyes: Right Eye Normal Inspection, Right Eye PERRL HEENT: PERRL/EOMI, Normal ENT Inspection, Pharynx Normal, Moist Mucous Membranes Neck: Full Range of Motion, Normal Inspection, Non Tender Respiratory: Chest Non Tender, Lungs Clear, Normal Breath Sounds, No Accessory Muscle Use, No Respiratory Distress Cardiovascular: Regular Rate, Rhythm, No Edema, No Gallop, No JVD, No Murmur, Normal Peripheral Pulses Gastrointestinal: Normal Bowel Sounds, No Organomegaly, No Pulsatile Mass, Non Tender, Soft Back: Normal Inspection, No CVA Tenderness, No Vertebral Tenderness Extremity: Normal Capillary Refill, Normal Inspection, Normal Range of Motion, Non Tender, No Calf Tenderness, No Pedal Edema Neurologic/Psychiatric: Alert, Oriented x3, No Motor/Sensory Deficits, Normal Mood/Affect Skin: Normal Color, Warm/Dry Lymphatic: No Adenopathy Results Results/Procedures Labs Laboratory Tests 02/20/21 15:10 02/21/21 05:10 Patient resulted labs reviewed. Assessment/Plan Admission Diagnosis Assessment: Right-sided paresthesia suspicious for stroke versus cervical spine impingement Cough for 3 weeks Covid negative but wheezing on lung exam Plan: Stroke protocol MRI of cervical spine and brain Wheezing management Admission Status: Observation Diagnosis/Problems Diagnosis/Problems (1) Paresthesia of right arm and leg Status: Acute (2) Cough Status: Acute Clinical Quality Measures Stroke: Date of last known well: Feb 20, 2021 Time of last known well: 14:20 Symptoms onset unknown: No XIMENA YI DO Feb 20, 2021 20:43
[2021-02-20] MEDS ORDERED: LORATADINE (CLARITIN) 10 MG TAB PO ONE (20:45)
[2021-02-20] MEDS ORDERED: ADVAIR HFA 115/21 MCG INHALER 8 GM IH SCH (21:00)
[2021-02-20] MEDS: RT-ALBUTEROL SULF 2.5 MG/3 ML PRE-MIX VIAL INH SCH (21:23)
[2021-02-20] MEDS ORDERED: MONTELUKAST 10 MG (SINGULAIR) TAB PO SCH (21:30)
[2021-02-20] MEDS ORDERED: AZITHROMYCIN 250 MG TAB (ZITHROMAX) PO ONE (21:30)
[2021-02-20] MEDS: BENZONATATE 100 MG (TESSALON) CAPSULE PO SCH (21:50)
[2021-02-21] VITALS: BP 132/82
[2021-02-21 04:00] VITALS: BP 134/89
[2021-02-21 05:21] LABS: BASOPHILS # (AUTO) 0.1 10^3/uL (0.0-0.1); BASOPHILS % (AUTO) 1 % (0-10); EOSINOPHILS # (AUTO) 0.3 10^3/uL (0.0-0.3); EOSINOPHILS % (AUTO) 3 % (0-10); HEMATOCRIT 44 % (40-54); HEMOGLOBIN 15.3 g/dL (13.3-17.7); LYMPHOCYTES # (AUTO) 2.4 10^3/uL (1.0-4.0); LYMPHOCYTES % (AUTO) 30 % (12-44); MEAN CORPUSCULAR HEMOGLOBIN 31 pg (25-34); MEAN CORPUSCULAR HGB CONC 35 g/dL (32-36); MEAN CORPUSCULAR VOLUME 90 fL (80-99); MEAN PLATELET VOLUME 9.5 fL (9.0-12.2); MONOCYTES # (AUTO) 0.6 10^3/uL (0.0-1.0); MONOCYTES % (AUTO) 8 % (0-12); NEUTROPHILS # (AUTO) 4.7 10^3/uL (1.8-7.8); NEUTROPHILS % (AUTO) 58 % (42-75); PLATELET COUNT 270 10^3/uL (130-400); WHITE BLOOD COUNT 8.2 10^3/uL (4.3-11.0)
[2021-02-21 05:39] LABS: ALBUMIN 3.9 GM/DL (3.2-4.5); POTASSIUM 3.7 MMOL/L (3.6-5.0)
[2021-02-21 05:40] LABS: CALCIUM 8.7 MG/DL (8.5-10.1)
[2021-02-21 05:41] LABS: TOTAL PROTEIN 7.1 GM/DL (6.4-8.2)
[2021-02-21 05:43] LABS: BILIRUBIN,TOTAL 0.7 MG/DL (0.1-1.0)
[2021-02-21 05:45] LABS: CREATININE SERUM 1.04 MG/DL (0.60-1.30)
[2021-02-21] MEDS ORDERED: methylPREDNISolone 40 MG/ML (Solu-MEDROL) VIAL IV ONE (06:00)
[2021-02-21 08:00] VITALS: BP 151/105
[2021-02-21] MEDS ORDERED: RT--FLUTICASONE/SALMETEROL 113-14 (AIRDUO RespiCLICK) IH SCH (08:00)
[2021-02-21] MEDS: BENZONATATE 100 MG (TESSALON) CAPSULE PO SCH (08:41)
[2021-02-21] MEDS: polyethylene glycoL POWDER 17 GM (MIRALAX) PACK PO SCH (08:41)
[2021-02-21] MEDS ORDERED: LORATADINE (CLARITIN) 10 MG TAB PO SCH (09:00)
[2021-02-21] MEDS ORDERED: ASPIRIN E.C. 81 MG (ECOTRIN) TAB PO SCH (09:00)
--- NOTE | 2021-02-21 09:00 | Diagnostic Imaging Report ---
CLINICAL INDICATION: Patient with paresthesia of the right side. COMPARISON: None. EXAM: Real-time carotid Doppler duplex imaging was performed bilaterally. Peak systolic velocity, ICA/CCA peak systolic ratio, spectral analysis, and vascular morphology were studied. FINDINGS: ARTERY VELOCITY Right Left CCA 1.08 m/s 1.26 m/s ICA 0.42 m/s 0.54 m/s ECA 0.63 m/s 0.89 m/s ICA/CCA 0.4 0.4 VERT.ART Antegrade Antegrade There is minimal atherosclerotic disease involving the bilateral carotid arteries. IMPRESSION: There is no grayscale or Doppler evidence of significant vascular stenosis. Dictated by: Dictated on workstation # [id number]
[2021-02-21] MEDS ORDERED: LEVO5TAB28 PO (09:05)
[2021-02-21] MEDS ORDERED: FLUT9.9S NSEACH (09:07)
[2021-02-21] MEDS ORDERED: amLODIPine 5 MG (NORVASC) TAB PO ONE (09:30)
--- NOTE | 2021-02-21 09:31 | Physical Therapy Evaluation ---
PT Evaluation-General Medical Diagnosis Admission Date Feb 20, 2021 at 16:51 Medical Diagnosis: right sided paresthesia Onset Date: Feb 20, 2021 Therapy Diagnosis Therapy Diagnosis: independent with mobility Precautions Precautions/Isolations: Standard Precautions Referral Physician: Ximena Yi DO Reason for Referral: Evaluation/Treatment Prior Prior Level of Function SCALE: Activities may be completed with or without assistive devices. 8-Rvzhthmfgq-hgcrxiq completes the activity by him/herself with no assistance from a helper. 5-Set-up or Clean-up Assistance-helper sets up or cleans up; patient completes activity. Reading assists only prior to or following the activity. 4-Supervision or Touching Assistance-helper provides verbal cues and/or touchi ng/steadying and/or contact guard assistance as patient completes activity. Assistance may be provided throughout the activity or intermittently. 3-Partial/Moderate Assistance-helper does LESS THAN HALF the effort. Reading lifts, holds or supports trunk or limbs, but provides less than half the effort. 2-Substantial/Maximal Assistance-helper does MORE THAN HALF the effort. Reading lifts or holds trunk or limbs and provides more than half the effort. 9-Zkpkdadaq-onvtki does ALL the effort. Patient does none of the effort to complete the activity. Or, the assistance of 2 or more helpers is required for the patient to complete the activity. If activity was not attempted, code reason: 7-Patient Refused. 9-Not Applicable-not attempted and the patient did not perform the activity before the current illness, exacerbation or injury. 10-Not Attempted due to Environmental Limitations-(lack of equipment, weather restraints, etc.). 88-Not Attempted due to Medical Conditions or Safety Concerns. Bed Mobility: 6 Transfers (B,C,W/C): 6 Gait: 6 Stairs: 6 Indoor Mobility (Ambulation): Independent Stairs: Independent PT Evaluation-Current Subjective Patient in bed pre tx, has minor unrated pain in neck, agrees to PT. Patient states his symptoms on his right side have resolved and has been ambulating in his room on his own. Pt/Family Goals "to go home" Objective Patient Orientation: Person, Place, Situation, Normal For Age ROM/Strength ROM Lower Extremities WNL Strength Lower Extremities BLE grossly 5/5 Sensory Vision: Functional Hearing: Functional Sensation Right Lower Extremit: Intact Sensation Left Lower Extremity: Intact Transfers Roll Left to Right (QC): 6 Sit to Lying (QC): 6 Lying to Sitting/Side of Bed(Q: 6 Sit to Stand (QC): 6 Chair/Req-rp-Oujdd Xfer(QC): 6 Gait Does the Patient Walk?: Yes Mode of Locomotion: Walk Anticipated Mode of Locomotion: Walk Walk 10 feet (QC): 6 Walk 50 ft with 2 Turns(QC): 6 Distance: 100' Gait Assistive Device: None Comments/Gait Description Patient ambulated back and forth in his room for about 100', without using an assistive device, independently, no unsteadiness, normal ambulation Balance Sitting Static: Normal Sitting Dynamic: Normal Standing Static: Normal Standing Dynamic: Normal Assessment/Needs Patient in bed post tx with nurse call, phone, tray, all needs met. Patient is independent with mobility, strength and symptoms has resolved. Will DC from PT at this time. Told patient that if symptoms come back to notify his nurse and we can come back. Rehab Potential: Good PT Plan Treatment/Plan Treatment Plan: Discontinue PT Treatment Duration: Feb 21, 2021 Frequency: Patient and/or Family Agrees t: Yes Discharge Recommendations Plan DC Time/GCodes Time In: 900 Time Out: 908 Total Billed Treatment Time: 8 Total Billed Treatment 1 visit EVALIYA JC PT Feb 21, 2021 09:31
[2021-02-21] MEDS: RT-ALBUTEROL SULF 2.5 MG/3 ML PRE-MIX VIAL INH SCH (09:32)
[2021-02-21] MEDS ORDERED: LORazepam INJ 2 MG/ML (ATIVAN) VIAL ONE (09:48)
[2021-02-21] MEDS ORDERED: MONT-40 PO (10:58)
[2021-02-21] MEDS ORDERED: PRED10TA22 PO (10:58)
[2021-02-21] MEDS ORDERED: AZIT250T12 PO (10:58)
[2021-02-21] MEDS ORDERED: GFCD10B PO (10:58)
--- NOTE | 2021-02-21 10:59 | Discharge Summary ---
Discharge Summary Hospital Course Was the Problem List Reviewed?: Yes Problems/Dx: (1) Paresthesia of right arm and leg Status: Acute (2) Cough Status: Acute Hospital Course Date of Admission: Feb 20, 2021 at 16:51 Admission Diagnosis : Family Physician/Provider: Rober Núñez MD Date of Discharge: 02/21/21 Discharge Diagnosis: Right-sided paresthesia with negative stroke work-up but cannot withstand MRI, upper respiratory illness with wheezing, hypertriglyceridemia, obesity BMI 33 Hospital Course: Hospital course: Pt had a brief hospital course, he was admitted for paresthesias of the right side of his body. He did have elevated BP. Stroke protocol was completed. He did have resolution of his symptoms. Could not withstand MRI so that test was discontinued. He will have close follow-up with Dr. Núñez in one week and MRI will be ordered if he feels its necessary at that point. Coarse breath sounds and wheezing managed with Azithromycin, Prednisone and Montulekast and those were sent into the pharmacy along with Robitussin with Codeine. Labs and Pending Lab Test: Laboratory Tests 02/20/21 15:10: White Blood Count 12.0H, Red Blood Count 5.45, Hemoglobin 17.1, Hematocrit 48, Mean Corpuscular Volume 88, Mean Corpuscular Hemoglobin 31, Mean Corpuscular Hemoglobin Concent 36, Red Cell Distribution Width 12.4, Platelet Count 362, Mean Platelet Volume 9.2, Immature Granulocyte % (Auto) 0, Neutrophils (%) (Auto) 46, Lymphocytes (%) (Auto) 41, Monocytes (%) (Auto) 7, Eosinophils (%) (Auto) 4, Basophils (%) (Auto) 1, Neutrophils # (Auto) 5.5, Lymphocytes # (Auto) 4.9H, Monocytes # (Auto) 0.8, Eosinophils # (Auto) 0.5H, Basophils # (Auto) 0.1, Immature Granulocyte # (Auto) 0.0, Prothrombin Time 12.6, INR Comment 0.9, Activated Partial Thromboplast Time 27, D-Dimer < 0.28, Sodium Level 139, Potassium Level 3.2L, Chloride Level 104, Carbon Dioxide Level 22, Anion Gap 13, Blood Urea Nitrogen 7, Creatinine 1.04, Estimat Glomerular Filtration Rate 81, BUN/Creatinine Ratio 7, Glucose Level 134H, Calcium Level 8.9, Corrected Calcium 8.5, Total Bilirubin 0.7, Aspartate Amino Transf (AST/SGOT) 21, Alanine Aminotransferase (ALT/SGPT) 35, Alkaline Phosphatase 91, Troponin I < 0.028, Total Protein 8.1, Albumin 4.5 02/20/21 15:15: SARS-CoV-2 RNA (RT-PCR) Not Detected 02/21/21 05:10: White Blood Count 8.2, Red Blood Count 4.91, Hemoglobin 15.3, Hematocrit 44, Mean Corpuscular Volume 90, Mean Corpuscular Hemoglobin 31, Mean Corpuscular Hemoglobin Concent 35, Red Cell Distribution Width 12.4, Platelet Count 270, Mean Platelet Volume 9.5, Immature Granulocyte % (Auto) 0, Neutrophils (%) (Auto) 58, Lymphocytes (%) (Auto) 30, Monocytes (%) (Auto) 8, Eosinophils (%) (Auto) 3, Basophils (%) (Auto) 1, Neutrophils # (Auto) 4.7, Lymphocytes # (Auto) 2.4, Monocytes # (Auto) 0.6, Eosinophils # (Auto) 0.3, Basophils # (Auto) 0.1, Immature Granulocyte # (Auto) 0.0, Sodium Level 140, Potassium Level 3.7, Chloride Level 103, Carbon Dioxide Level 26, Anion Gap 11, Blood Urea Nitrogen 9, Creatinine 1.04, Estimat Glomerular Filtration Rate 81, BUN/Creatinine Ratio 9, Glucose Level 90, Calcium Level 8.7, Corrected Calcium 8.8, Total Bilirubin 0.7, Aspartate Amino Transf (AST/SGOT) 18, Alanine Aminotransferase (ALT/SGPT) 30, Alkaline Phosphatase 75, Total Protein 7.1, Albumin 3.9, Triglycerides Level 321H, Cholesterol Level 170, LDL Cholesterol Direct 94, VLDL Cholesterol 64H, HDL Cholesterol 28L Home Meds Active Prednisone 10 Mg Tab.ds.pk 10 Mg PO DAILY Montelukast Sodium 10 Mg Tablet 10 Mg PO HS Azithromycin 250 Mg Tablet 250 Mg PO HS Reported Flonase Allergy Relief (Fluticasone Propionate) 9.9 Ml Aspen.susp 1-2 Aspen NSEACH DAILY PRN Xyzal (Levocetirizine Dihydrochloride) 5 Mg Tablet 5 Mg PO HS Assessment/Pt Instructions PCP tomorrow Discharge Planning: <30 minutes discharge planning Discharge Instructions Discharge Diet: No Restrictions Activity as Tolerated: Yes Discharge Physical Examination Vital Signs Vital Signs Date Time Temp Pulse Resp B/P (MAP) Pulse Ox O2 Delivery O2 Flow Rate FiO2 02/21/21 08:30 Room Air 02/21/21 08:00 36.5 80 18 151/105 (120) 92 02/20/21 18:31 21 Respiratory: Crackles, Wheezing, Other (Improved from previous) Neurologic/Psychiatric: Alert, Oriented x3, No Motor/Sensory Deficits, Normal Mood/Affect Allergies: Coded Allergies: No Known Drug Allergies (Unverified , 07/07/19) Discharge Summary Date of Admission Feb 20, 2021 at 16:51 Date of Discharge Discharge Date: Feb 21, 2021 Admission Diagnosis Assessment: Right-sided paresthesia suspicious for stroke versus cervical spine impingement Cough for 3 weeks Covid negative but wheezing on lung exam Plan: Stroke protocol MRI of cervical spine and brain Wheezing management Discharge Diagnosis (1) Paresthesia of right arm and leg Status: Acute (2) Cough Status: Acute Clinical Quality Measures Stroke: Date of last known well: Feb 20, 2021 Time of last known well: 14:20 Symptoms onset unknown: No ELIN DOHERTY DO Feb 21, 2021 10:58
--- NOTE | 2021-02-21 11:39 | Occ Therapy Progress Note ---
Therapy Progress Note OT orders received and chart reviewed. Pt standing up in room upon OT arrival. Pt states he has no concerns with ADL function and he is up independently in his room. Pt has not had any UE tingling/numbness or weakness today. OT informed pt to let the nurse know if he has any changes. No skilled OT services indicated at this time, as pt is at PLOF and independent with ADLs. D/C from OT 1, visit 1040 ANA VILCHIS OT Feb 21, 2021 11:39
--- NOTE | 2021-02-21 12:29 | Progress Note ---
ERI SMITH 02/21/21 1229: Progress Note This patient is a 35 year old male who presented to the ER at [facility] by private vehicle on 02/20 for further evaluation from Dr. Núñez's office. Patient was visiting Dr. Núñez for a productive cough of three weeks duration. At the visit patient had an onset of paresthesia in the right upper and lower ex tremity. Patient lost strength in these extremities shortly after. Patient does not smoke, but does have a history of panic attacks. At the ER, patient had a negative chest x-ray. Patient had a head CT without contrast that had the following impressions: 1. Essentially unremarkable non-enhanced brain CT. 2. Acute on chronic pansinusitis, most severe in the posterior ethmoid air cells and sphenoid sinuses. 3. Slight increased attenuation of vascular structures, thought to be due to hemoconcentration rather than thromboemboli. Patient then had a head CT angiogram with the following impressions: 1. nondominant right vertebral artery shows contrast opacification up to the skull base transverse segment. The V3 segment, howeer, shows poor contrast opacification. This could be due to technique: however, underlying short segment atherosclerosis vs focal dissection in this small caliber vessel is not excluded. It should be noted that the right PICA appears to show increased contrast opacification, which may be due to collateral flow. 2. Negative anterior circulation. 3. Negative left vertebral artery. These results were discussed with Dr. Wells from Stroke Neurology at . Recommended admission for observation and typical stroke work-up with brain and cervical MRI. Patient was admitted to Dr. Doherty, who also noted wheezing, and started the patient on AirDuo, azithromycin, benzonotate, singulair, claritin, albuterol, and robitussin AC. On 02/21 patient was feeling much better, reported that symptoms had resolved. Patient was noted to have hypertension throughout the hospital stay, and was started on norvasc 5mg once daily. Patient was unable to tolerate MRI, even with a dose of ativan, stating he felt too claustrophobic and unable to hold still for the required time it would take. Patient was told by the automotive paint technician that [facility] had a larger MRI machine and would like to try that outpatient. Patient is being discharged with instructions to have close follow- up with PCP Dr. Núñez for scheduling of MRI and continued monitoring of hypertension. XIMENA DOHERTY DO 02/21/212031: Supervisory-Addendum Brief Verification & Attestation Participated in pt care: history, MDM, physical Personally performed: exam, history, MDM, supervision of care Care discussed with: Medical Student Procedures: n/a Results interpretation: Verified all documentation Verification and Attestation of Medical Student E/M Service A medical student performed and documented this service in my presence. I reviewed and verified all information documented by the medical student and made modifications to such information, when appropriate. I personally performed the physical exam and medical decision making. Ximena Doherty, Feb 21, 2021,20:32 LUISERI Feb 21, 2021 12:29 XIMENA DOHERTY DO Feb 21, 2021 20:32
[2021-02-21] MEDS ORDERED: AZITHROMYCIN 250 MG TAB (ZITHROMAX) PO SCH (21:00)
[2021-02-22] MEDS ORDERED: amLODIPine 5 MG (NORVASC) TAB PO SCH (09:00)
== END 2021-02-21 10:56 | disposition home or self-care (01) ==
LOC: EDUNIT# 15:02 → ER 15:03 → CSD 16:51 → UNDOADMOB 16:51 → CSD 17:52 → UNDODISOB 02-21 11:15
PROVIDERS: ADMIT Internal Medicine; ATTEND Internal Medicine
DX: R20.2 Paresthesia of skin (principal); R05.9 Cough, unspecified; J32.4 Chronic pansinusitis; J01.40 Acute pansinusitis, unspecified; E78.1 Pure hyperglyceridemia; E66.9 Obesity, unspecified; Z68.33 Body mass index [BMI] 33.0-33.9, adult; Z79.899 Other long term (current) drug therapy; Z79.2 Long term (current) use of antibiotics
CPT/HCPCS: 36415; 70450; 70496; 70498; 71045; 80053; 80061; 84484; 85025; 85379; 85610; 85730; 87636; 93005; 93041; 93306; 93880; 94640; 94664; G0378